=== PATIENT | male | born 1965 | race African-American/Black ===

== ENCOUNTER 2025-04-02 13:09 | Emergency (ER) | payer OTHER ==
[~2025-04-02] VITALS: Ht 167.6 cm; Wt 90.5 kg
[2025-04-02] MEDS ORDERED: AMLO-257 PO (13:53)
[2025-04-02] MEDS ORDERED: FLUT16SP NASAL (13:53)
[2025-04-02] MEDS ORDERED: CLON0.1T2 PO (13:53)
[2025-04-02] MEDS ORDERED: TAMS0.4C94 PO (13:53)
[2025-04-02 14:02] VITALS: TEMP 98.2
[2025-04-02] MEDS: HYDROCODONE/ACETAMINOPHEN 5-325 MG TABLET PO ONE (14:10)
[2025-04-02] MEDS: PERTUSS(ACELL),DIPH,TET/PF 0.5 ML SYRINGE [ADULT] IM. ONE (15:36)
[2025-04-02 18:00] VITALS: BP 129/81; PULSE 81; RESP 18; O2SAT 97
== END 2025-04-02 20:50 ==
LOC: EMS 13:09
DX: S00.03XA Contusion of scalp, initial encounter (principal); S50.11XA Contusion of right forearm, initial encounter; S70.12XA Contusion of left thigh, initial encounter; I10 Essential (primary) hypertension; S00.83XA Contusion of other part of head, initial encounter; Z79.899 Other long term (current) drug therapy; Z91.0110 Allergy to milk products, unspecified; Y08.89XA Assault by other specified means, initial encounter; Y93.89 Activity, other specified; Y92.89 Other specified places as the place of occurrence of the external cause; Y99.8 Other external cause status
CPT/HCPCS: 70450; 70486; 90715; 99284